=== PATIENT | male | born 1940 | race Caucasian/White ===

== ENCOUNTER 2023-03-08 14:57 | Inpatient (IN) | payer OTHER ==
[~2023-03-08] VITALS: Ht 172.7 cm; Wt 77.1 kg
[2023-03-08] MEDS ORDERED: NICARDIPINE IN NACL, ISO-OSM 200 ML IV ONE (17:30)
[2023-03-08 17:46] LABS: HEMATOCRIT 29 % (39-51); HEMOGLOBIN 9.7 g/dL (13.5-17.5); MEAN CORPUSCULAR HEMOGLOBIN 29 PG (26.0-33.0); MEAN CORPUSCULAR HGB CONC 34 g/dl (31.0-36.0); MEAN CORPUSCULAR VOLUME 85 fL (80-96); PLATELET COUNT (AUTO) 242 K/uL (150-450); RED CELL DISTRIBUTION WIDTH 15.7 % (11.5-15.0); WHITE BLOOD COUNT (AUTO) 6.2 K/uL (4.3-11.0)
[2023-03-08 17:47] LABS: BASOPHILS % (AUTO) 0.6 % (0.0-2.0); EOSINOPHILS # (AUTO) 0.1 K/uL (0.0-0.7); EOSINOPHILS % (AUTO) 1.6 % (0.0-6.0); LYMPHOCYTES # (AUTO) 0.6 K/uL (0.8-4.8); LYMPHOCYTES % (AUTO) 9.3 % (20.0-44.0); MONOCYTES # (AUTO) 0.6 K/uL (0.1-1.30); NEUTROPHILS # (AUTO) 4.9 K/uL (1.8-8.9); NEUTROPHILS % (AUTO) 79.5 % (43.0-81.0)
[2023-03-08 17:53] LABS: INR 1.04 (0.91-1.10); PARTIAL THROMBOPLASTIN TIME 27.3 SEC (24.3-34.3); PROTHROMBIN TIME 10.9 SECS (9.2-11.1)
[2023-03-08 18:06] LABS: CALCIUM, SERUM 10.5 mg/dL (8.5-10.1); CARBON DIOXIDE 27 mmol/L (21-32); CHLORIDE 111 mmol/L (98-107); CREATININE 1.6 mg/dL (0.6-1.3); GLUCOSE 125 mg/dL (74-106); POTASSIUM 4.6 mmol/L (3.5-5.1); SODIUM SERUM 146 mmol/L (136-145); UREA NITROGEN, BLOOD 54 mg/dL (7-18)
[2023-03-08] MEDS ORDERED: QUET100T GT (19:35)
[2023-03-08] MEDS ORDERED: AMLO10TA4 GT (19:35)
[2023-03-08] MEDS ORDERED: LEVO50TA8 GT (19:35)
[2023-03-08] MEDS ORDERED: MAGN400O6 GT (19:35)
[2023-03-08] MEDS ORDERED: NA P133E RC (19:35)
[2023-03-08] MEDS ORDERED: OXYC5TAB3 GT (19:35)
[2023-03-08] MEDS ORDERED: ACET-868 GT (19:35)
[2023-03-08] MEDS ORDERED: ATOR20TA GT (19:35)
[2023-03-08] MEDS ORDERED: NUTR250L50 GT (19:35)
[2023-03-08] MEDS ORDERED: TAMS-12 GT (19:35)
[2023-03-08] MEDS ORDERED: NEOM1OIN15 TP (19:35)
[2023-03-08] MEDS ORDERED: DULO30CA2 GT (19:35)
[2023-03-08] MEDS ORDERED: SENN-261 GT (19:35)
[2023-03-08] MEDS ORDERED: LACT10SO3 GT (19:35)
[2023-03-08] MEDS ORDERED: MULT-213 GT (19:35)
[2023-03-08] MEDS ORDERED: FINA5TAB11 GT (19:35)
[2023-03-08] MEDS ORDERED: ENOX40DI SQ (19:35)
[2023-03-08] MEDS ORDERED: HYDR100T27 GT (19:35)
[2023-03-08] MEDS ORDERED: POLY17PO4 GT (19:35)
[2023-03-08] MEDS ORDERED: MELA3TAB47 GT (19:35)
[2023-03-08] MEDS ORDERED: AMOX100T GT (19:35)
[2023-03-08] MEDS ORDERED: MINO2.5T GT (19:35)
[2023-03-08] MEDS ORDERED: BISA10SU11 RC (19:35)
[2023-03-08] MEDS ORDERED: Z GUARD REMEDY 4 OZ OINT TP PRN (21:00)
[2023-03-08] MEDS ORDERED: ZOLPIDEM TARTRATE 5 MG TABLET PO PRN (21:00)
[2023-03-08] MEDS ORDERED: HYDROCODONE/APAP 5/325MG TABLET PO PRN (21:00)
[2023-03-08] MEDS ORDERED: ONDANSETRON HCL/PF 4 MG/2 ML VIAL IVP PRN (21:00)
[2023-03-08] MEDS ORDERED: ACETAMINOPHEN 325 MG TABLET PO PRN (21:00)
[2023-03-08] MEDS ORDERED: MAG HYDROX/AL HYDROX/SIMETH 30 ML UDC PO PRN (21:00)
[2023-03-08] MEDS ORDERED: MAGNESIUM HYDROXIDE 30 ML UDC PO PRN (21:00)
[2023-03-08 21:20] VITALS: BP 130/93; TEMP 97.4; O2SAT 96
[2023-03-08] MEDS: IV 1/2NS 1000 ML 1,000 ML IV PRN (21:48)
[2023-03-08 22:00] VITALS: BP 127/54; O2SAT 92
[2023-03-08 23:00] VITALS: BP 139/70; O2SAT 94
[2023-03-09] VITALS (24 sets, daily range): BP systolic 115–157; BP diastolic 38–75; TEMP 97.7–99; O2SAT 26–98
[2023-03-09 05:19] LABS: BASOPHILS % (AUTO) 0.5 % (0.0-2.0); EOSINOPHILS % (AUTO) 0.5 % (0.0-6.0); HEMATOCRIT 27 % (39-51); HEMOGLOBIN 9.2 g/dL (13.5-17.5); LYMPHOCYTES # (AUTO) 0.7 K/uL (0.8-4.8); LYMPHOCYTES % (AUTO) 11.5 % (20.0-44.0); MEAN CORPUSCULAR HEMOGLOBIN 29 PG (26.0-33.0); MEAN CORPUSCULAR HGB CONC 34 g/dl (31.0-36.0); MEAN CORPUSCULAR VOLUME 86 fL (80-96); MONOCYTES # (AUTO) 0.8 K/uL (0.1-1.30); MONOCYTES % (AUTO) 12.8 % (2.0-12.0); NEUTROPHILS # (AUTO) 4.4 K/uL (1.8-8.9); NEUTROPHILS % (AUTO) 74.7 % (43.0-81.0); PLATELET COUNT (AUTO) 232 K/uL (150-450); RED BLOOD CELL COUNT(AUTO) 3.15 MIL/uL (4.5-6.0); RED CELL DISTRIBUTION WIDTH 15.3 % (11.5-15.0); WHITE BLOOD COUNT (AUTO) 5.9 K/uL (4.3-11.0)
[2023-03-09 05:37] LABS: CALCIUM, SERUM 10.3 mg/dL (8.5-10.1); CREATININE 1.3 mg/dL (0.6-1.3); POTASSIUM 4.1 mmol/L (3.5-5.1)
[2023-03-09 05:38] LABS: MAGNESIUM 2.2 mg/dL (1.8-2.4); PHOSPHORUS 3.7 mg/dL (2.5-4.9)
[2023-03-09 05:55] LABS: THYROID STIMULATING HORMONE 1.796 uIU/mL (0.358-3.74)
[2023-03-09] MEDS ORDERED: MAGNESIUM HYDROXIDE 30 ML UDC GT PRN (06:00)
[2023-03-09] MEDS ORDERED: BISACODYL SUPP (10 MG) 10 MG/SUPP.RECT SUPP.RECT RC PRN (06:00)
[2023-03-09] MEDS ORDERED: MAG HYDROX/AL HYDROX/SIMETH 30 ML UDC GT PRN (06:51)
[2023-03-09] MEDS ORDERED: ZOLPIDEM TARTRATE 5 MG TABLET GT PRN (06:51)
[2023-03-09] MEDS ORDERED: ACETAMINOPHEN 650 MG/20.3 ML UDC GT PRN (07:00)
[2023-03-09] MEDS: JEVITY 1.2 CAL 1,000 ML BOTTLE GT PRN ×2 (07:00→09:13)
[2023-03-09] MEDS ORDERED: LACTULOSE 10 G/15 ML UDC (PYXIS) GT PRN (07:00)
[2023-03-09] MEDS: LEVOTHYROXINE SODIUM 50 MCG TABLET GT SCH (08:27)
[2023-03-09] MEDS ORDERED: JEVITY 1.2 CAL 1,000 ML BOTTLE GT PRN (08:30)
[2023-03-09] MEDS: DULOXETINE HCL 30 MG CAPSULE.DR GT SCH (08:53)
[2023-03-09] MEDS: POLYETHYLENE GLYCOL 3350 17 GM POWD.PACK GT SCH (08:53)
[2023-03-09] MEDS: MINOXIDIL (2.5MG) 2.5 MG TABLET GT SCH ×2 (08:53→21:16)
[2023-03-09] MEDS: QUETIAPINE FUMARATE 100 MG TABLET GT SCH ×2 (08:54→21:17)
[2023-03-09] MEDS: PANTOPRAZOLE 40 MG/PACK PACK GT SCH (08:54)
[2023-03-09] MEDS: AMLODIPINE BESYLATE 10 MG TABLET GT SCH (08:54)
[2023-03-09] MEDS: SENNOSIDES 8.6 MG TABLET GT SCH ×2 (08:54→21:16)
[2023-03-09] MEDS: FINASTERIDE (5 MG) 5 MG TABLET GT SCH (08:54)
[2023-03-09] MEDS: MULTIVIT W/MINERALS 1 TAB TABLET GT SCH (08:54)
[2023-03-09] MEDS: IV 1/2NS 1000 ML 1,000 ML IV PRN ×2 (11:26→23:08)
[2023-03-09] MEDS ORDERED: oxyCODONE IR immediate release 5 MG GT PRN (11:30)
[2023-03-09] MEDS: hydrALAZINE HCL 50 MG TABLET GT SCH ×3 (16:17→21:17)
[2023-03-09] MEDS ORDERED: HYDROCODONE/APAP 10/325MG TABLET GT PRN (17:00)
[2023-03-09 17:49] LABS: CALCIUM, SERUM 10.3 mg/dL (8.5-10.1); CARBON DIOXIDE 26 mmol/L (21-32); CHLORIDE 115 mmol/L (98-107); CREATININE 1.3 mg/dL (0.6-1.3); GLUCOSE 112 mg/dL (74-106); MAGNESIUM 2.2 mg/dL (1.8-2.4); PHOSPHORUS 3.7 mg/dL (2.5-4.9); POTASSIUM 4.4 mmol/L (3.5-5.1); SODIUM SERUM 151 mmol/L (136-145); UREA NITROGEN, BLOOD 46 mg/dL (7-18)
[2023-03-09 18:06] LABS: URIC ACID 7.2 mg/dL (2.6-7.2)
[2023-03-09] MEDS: TAMSULOSIN 0.4 MG CAP.SR.24H GT SCH (21:16)
[2023-03-09] MEDS: ATORVASTATIN 10 MG TABLET GT SCH (21:16)
[2023-03-09] MEDS: HYDROCODONE/APAP 5/325MG TABLET GT PRN (21:17)
[2023-03-09] MEDS ORDERED: AMOXAPINE GT SCH (22:00)
[2023-03-10] VITALS (19 sets, daily range): BP systolic 116–152; BP diastolic 35–58; TEMP 97.6–99.2; O2SAT 92–100
[2023-03-10 05:49] LABS: BASOPHILS % (AUTO) 0.8 % (0.0-2.0); EOSINOPHILS # (AUTO) 0.1 K/uL (0.0-0.7); HEMATOCRIT 27 % (39-51); HEMOGLOBIN 9.2 g/dL (13.5-17.5); LYMPHOCYTES # (AUTO) 0.8 K/uL (0.8-4.8); LYMPHOCYTES % (AUTO) 13.9 % (20.0-44.0); MEAN CORPUSCULAR HEMOGLOBIN 29 PG (26.0-33.0); MEAN CORPUSCULAR HGB CONC 34 g/dl (31.0-36.0); MEAN CORPUSCULAR VOLUME 85 fL (80-96); MONOCYTES # (AUTO) 0.9 K/uL (0.1-1.30); MONOCYTES % (AUTO) 14.1 % (2.0-12.0); NEUTROPHILS # (AUTO) 4.2 K/uL (1.8-8.9); NEUTROPHILS % (AUTO) 69.2 % (43.0-81.0); PLATELET COUNT (AUTO) 230 K/uL (150-450); RED BLOOD CELL COUNT(AUTO) 3.16 MIL/uL (4.5-6.0); RED CELL DISTRIBUTION WIDTH 15.4 % (11.5-15.0); WHITE BLOOD COUNT (AUTO) 6.1 K/uL (4.3-11.0)
[2023-03-10 06:43] LABS: BILIRUBIN,TOTAL 0.4 mg/dL (0.2-1.0); CALCIUM, SERUM 9.7 mg/dL (8.5-10.1); CREATININE 1.3 mg/dL (0.6-1.3); MAGNESIUM 2.1 mg/dL (1.8-2.4); PHOSPHORUS 3.3 mg/dL (2.5-4.9); TOTAL PROTEIN, SERUM 6.2 g/dL (6.4-8.2)
[2023-03-10 07:38] LABS: APPEARANCE,URINE CLEAR (CLEAR); BILIRUBIN,URINE NEGATIVE (NEGATIVE); BLOOD, URINE TRACE-INTA Ery/uL (NEGATIVE); COLOR,URINE YELLOW (YELLOW); KETONES,URINE NEGATIVE (NEGATIVE); LEUKOCYTE ESTERASE ,URINE 2+ (NEGATIVE); NITRITE, URINE POSITIVE (NEGATIVE); PROTEIN,URINE 3+ mg/dl (NEGATIVE); UGLUCOSE NEGATIVE (NEGATIVE); UROBILINOGEN,URINE 0.2 EU/dL (0.2)
[2023-03-10 07:39] LABS: PH,URINE >9.0 (5.0-8.0)
[2023-03-10 07:43] LABS: ADD URINE CULTURE YES; BACTERIA,URINE Moderate /HPF (None Seen); EOSINOPHIL,URINE None Seen; RBC,URINE 0-2 /HPF (0-2); SQUAMOUS EPITHELIAL CELL,UR Rare /HPF (None Seen)
[2023-03-10] MEDS: POLYETHYLENE GLYCOL 3350 17 GM POWD.PACK GT SCH (09:10)
[2023-03-10] MEDS: DULOXETINE HCL 30 MG CAPSULE.DR GT SCH (09:11)
[2023-03-10] MEDS: PANTOPRAZOLE 40 MG/PACK PACK GT SCH (09:11)
[2023-03-10] MEDS: MINOXIDIL (2.5MG) 2.5 MG TABLET GT SCH ×2 (09:11→21:13)
[2023-03-10] MEDS: MULTIVIT W/MINERALS 1 TAB TABLET GT SCH (09:11)
[2023-03-10] MEDS: QUETIAPINE FUMARATE 100 MG TABLET GT SCH ×2 (09:11→21:14)
[2023-03-10] MEDS: FINASTERIDE (5 MG) 5 MG TABLET GT SCH (09:11)
[2023-03-10] MEDS: SENNOSIDES 8.6 MG TABLET GT SCH ×2 (09:12→21:14)
[2023-03-10] MEDS: AMLODIPINE BESYLATE 10 MG TABLET GT SCH (09:12)
[2023-03-10] MEDS: hydrALAZINE HCL 50 MG TABLET GT SCH ×4 (09:12→21:13)
[2023-03-10] MEDS: LEVOTHYROXINE SODIUM 50 MCG TABLET GT SCH (09:12)
[2023-03-10] MEDS: JEVITY 1.2 CAL 1,000 ML BOTTLE GT PRN (09:14)
[2023-03-10 10:18] LABS: CREATININE, URINE 54.7 MG/DL (30.0-125.0); URINE TOTAL PROTEIN 291.5 mg/dL (0-11.9)
[2023-03-10] MEDS: IV 1/2NS 1000 ML 1,000 ML IV PRN (14:45)
[2023-03-10] MEDS: ATORVASTATIN 10 MG TABLET GT SCH (21:14)
[2023-03-10] MEDS: TAMSULOSIN 0.4 MG CAP.SR.24H GT SCH (21:15)
[2023-03-11 07:00] VITALS: BP 115/66; TEMP 98.2; O2SAT 95
[2023-03-11] MEDS: LEVOTHYROXINE SODIUM 50 MCG TABLET GT SCH (07:54)
[2023-03-11] MEDS: hydrALAZINE HCL 50 MG TABLET GT SCH ×4 (10:04→22:36)
[2023-03-11] MEDS: DULOXETINE HCL 30 MG CAPSULE.DR GT SCH (10:13)
[2023-03-11] MEDS: MINOXIDIL (2.5MG) 2.5 MG TABLET GT SCH ×2 (10:14→22:35)
[2023-03-11] MEDS: POLYETHYLENE GLYCOL 3350 17 GM POWD.PACK GT SCH (10:14)
[2023-03-11] MEDS: FINASTERIDE (5 MG) 5 MG TABLET GT SCH (10:15)
[2023-03-11] MEDS: PANTOPRAZOLE 40 MG/PACK PACK GT SCH (10:15)
[2023-03-11] MEDS: SENNOSIDES 8.6 MG TABLET GT SCH ×2 (10:15→22:36)
[2023-03-11] MEDS: AMLODIPINE BESYLATE 10 MG TABLET GT SCH (10:15)
[2023-03-11] MEDS: MULTIVIT W/MINERALS 1 TAB TABLET GT SCH (10:16)
[2023-03-11] MEDS: QUETIAPINE FUMARATE 100 MG TABLET GT SCH ×2 (10:16→22:36)
[2023-03-11] MEDS: HYDROCODONE/APAP 5/325MG TABLET GT PRN (10:17)
[2023-03-11] MEDS: CEFTRIAXONE 1 G in IV D5W 50 ML IV SCH (15:28)
[2023-03-11 16:00] VITALS: BP 112/87; TEMP 98.7; O2SAT 96
[2023-03-11 18:00] VITALS: BP 134/43; TEMP 98.3
[2023-03-11 19:00] VITALS: BP 134/75; TEMP 99; O2SAT 94
[2023-03-11] MEDS: TAMSULOSIN 0.4 MG CAP.SR.24H GT SCH (22:34)
[2023-03-11] MEDS: ATORVASTATIN 10 MG TABLET GT SCH (22:35)
[2023-03-11] MEDS: JEVITY 1.2 CAL 1,000 ML BOTTLE GT PRN (22:43)
[2023-03-12 04:00] VITALS: BP 130/48; TEMP 98; O2SAT 90
[2023-03-12] MEDS: LEVOTHYROXINE SODIUM 50 MCG TABLET GT SCH (07:51)
[2023-03-12 08:00] VITALS: BP 142/62; TEMP 98.5; O2SAT 96
[2023-03-12] MEDS: AMLODIPINE BESYLATE 10 MG TABLET GT SCH (08:51)
[2023-03-12] MEDS: PANTOPRAZOLE 40 MG/PACK PACK GT SCH (08:51)
[2023-03-12] MEDS: SENNOSIDES 8.6 MG TABLET GT SCH ×2 (08:51→21:26)
[2023-03-12] MEDS: MULTIVIT W/MINERALS 1 TAB TABLET GT SCH (08:51)
[2023-03-12] MEDS: QUETIAPINE FUMARATE 100 MG TABLET GT SCH ×2 (08:51→21:25)
[2023-03-12] MEDS: hydrALAZINE HCL 50 MG TABLET GT SCH ×4 (08:52→21:26)
[2023-03-12] MEDS: POLYETHYLENE GLYCOL 3350 17 GM POWD.PACK GT SCH (08:53)
[2023-03-12] MEDS: MINOXIDIL (2.5MG) 2.5 MG TABLET GT SCH ×2 (08:53→21:25)
[2023-03-12] MEDS: DULOXETINE HCL 30 MG CAPSULE.DR GT SCH (08:53)
[2023-03-12] MEDS: FINASTERIDE (5 MG) 5 MG TABLET GT SCH (08:53)
[2023-03-12 12:00] VITALS: BP 130/48; TEMP 98; O2SAT 98
[2023-03-12 12:29] LABS: BASOPHILS % (AUTO) 0.3 % (0.0-2.0); EOSINOPHILS # (AUTO) 0.1 K/uL (0.0-0.7); EOSINOPHILS % (AUTO) 0.8 % (0.0-6.0); HEMATOCRIT 26 % (39-51); HEMOGLOBIN 8.7 g/dL (13.5-17.5); LYMPHOCYTES # (AUTO) 0.7 K/uL (0.8-4.8); LYMPHOCYTES % (AUTO) 10.6 % (20.0-44.0); MEAN CORPUSCULAR HEMOGLOBIN 28 PG (26.0-33.0); MEAN CORPUSCULAR HGB CONC 33 g/dl (31.0-36.0); MEAN CORPUSCULAR VOLUME 86 fL (80-96); MONOCYTES # (AUTO) 0.8 K/uL (0.1-1.30); MONOCYTES % (AUTO) 11.5 % (2.0-12.0); NEUTROPHILS # (AUTO) 5.1 K/uL (1.8-8.9); NEUTROPHILS % (AUTO) 76.8 % (43.0-81.0); PLATELET COUNT (AUTO) 199 K/uL (150-450); RED BLOOD CELL COUNT(AUTO) 3.09 MIL/uL (4.5-6.0); RED CELL DISTRIBUTION WIDTH 15.8 % (11.5-15.0); WHITE BLOOD COUNT (AUTO) 6.7 K/uL (4.3-11.0)
[2023-03-12] MEDS: CEFTRIAXONE 1 G in IV D5W 50 ML IV SCH (13:04)
[2023-03-12 13:31] LABS: ALANINE AMINOTRANSFERASE 33 U/L (12-78); ALBUMIN 2.9 g/dL (3.4-5.0); ALKALINE PHOSPHATASE 63 U/L (46-116); ASPARTATE AMINOTRANSFERASE 18 U/L (15-37); BILIRUBIN,TOTAL 0.3 mg/dL (0.2-1.0); CARBON DIOXIDE 24 mmol/L (21-32); CHLORIDE 121 mmol/L (98-107); CREATININE 1.4 mg/dL (0.6-1.3); GLUCOSE 164 mg/dL (74-106); MAGNESIUM 2.4 mg/dL (1.8-2.4); PHOSPHORUS 3.6 mg/dL (2.5-4.9); POTASSIUM 4.1 mmol/L (3.5-5.1); SODIUM SERUM 153 mmol/L (136-145); TOTAL PROTEIN, SERUM 6.4 g/dL (6.4-8.2); UREA NITROGEN, BLOOD 50 mg/dL (7-18)
[2023-03-12] MEDS: JEVITY 1.2 CAL 1,000 ML BOTTLE GT PRN (14:44)
[2023-03-12 19:20] VITALS: BP 136/76; TEMP 98.9; O2SAT 96
[2023-03-12] MEDS: ATORVASTATIN 10 MG TABLET GT SCH (21:25)
[2023-03-12] MEDS: TAMSULOSIN 0.4 MG CAP.SR.24H GT SCH (21:26)
[2023-03-13 04:00] VITALS: BP 114/67; TEMP 95.8; O2SAT 94
[2023-03-13 06:22] LABS: BASOPHILS % (AUTO) 0.6 % (0.0-2.0); EOSINOPHILS # (AUTO) 0.2 K/uL (0.0-0.7); EOSINOPHILS % (AUTO) 2.4 % (0.0-6.0); HEMATOCRIT 26 % (39-51); HEMOGLOBIN 8.8 g/dL (13.5-17.5); LYMPHOCYTES # (AUTO) 0.8 K/uL (0.8-4.8); LYMPHOCYTES % (AUTO) 13.3 % (20.0-44.0); MEAN CORPUSCULAR HEMOGLOBIN 29 PG (26.0-33.0); MEAN CORPUSCULAR HGB CONC 34 g/dl (31.0-36.0); MEAN CORPUSCULAR VOLUME 85 fL (80-96); MONOCYTES # (AUTO) 0.8 K/uL (0.1-1.30); MONOCYTES % (AUTO) 13.4 % (2.0-12.0); NEUTROPHILS # (AUTO) 4.3 K/uL (1.8-8.9); NEUTROPHILS % (AUTO) 70.3 % (43.0-81.0); PLATELET COUNT (AUTO) 221 K/uL (150-450); RED BLOOD CELL COUNT(AUTO) 3.07 MIL/uL (4.5-6.0); RED CELL DISTRIBUTION WIDTH 15.4 % (11.5-15.0); WHITE BLOOD COUNT (AUTO) 6.2 K/uL (4.3-11.0)
[2023-03-13 06:44] LABS: CALCIUM, SERUM 10.1 mg/dL (8.5-10.1); CARBON DIOXIDE 24 mmol/L (21-32); CHLORIDE 123 mmol/L (98-107); CREATININE 1.5 mg/dL (0.6-1.3); GLUCOSE 147 mg/dL (74-106); POTASSIUM 4.6 mmol/L (3.5-5.1); UREA NITROGEN, BLOOD 55 mg/dL (7-18)
[2023-03-13 07:01] LABS: SODIUM SERUM 159 mmol/L (136-145)
[2023-03-13 08:00] VITALS: BP 133/61; TEMP 98.3; O2SAT 95
[2023-03-13] MEDS: POLYETHYLENE GLYCOL 3350 17 GM POWD.PACK GT SCH (08:04)
[2023-03-13] MEDS: PANTOPRAZOLE 40 MG/PACK PACK GT SCH (08:05)
[2023-03-13] MEDS: FINASTERIDE (5 MG) 5 MG TABLET GT SCH (08:05)
[2023-03-13] MEDS: QUETIAPINE FUMARATE 100 MG TABLET GT SCH ×2 (08:05→21:15)
[2023-03-13] MEDS: MULTIVIT W/MINERALS 1 TAB TABLET GT SCH (08:06)
[2023-03-13] MEDS: LEVOTHYROXINE SODIUM 50 MCG TABLET GT SCH (08:06)
[2023-03-13] MEDS: DULOXETINE HCL 30 MG CAPSULE.DR GT SCH (08:06)
[2023-03-13] MEDS: SENNOSIDES 8.6 MG TABLET GT SCH ×2 (08:06→21:13)
[2023-03-13] MEDS: MINOXIDIL (2.5MG) 2.5 MG TABLET GT SCH ×2 (08:16→21:15)
[2023-03-13] MEDS: AMLODIPINE BESYLATE 10 MG TABLET GT SCH (08:17)
[2023-03-13] MEDS: hydrALAZINE HCL 50 MG TABLET GT SCH ×4 (08:17→21:17)
[2023-03-13] MEDS: IV D5W 1,000 ML IV PRN (10:10)
[2023-03-13] MEDS: CEFTRIAXONE 1 G in IV D5W 50 ML IV SCH (13:12)
[2023-03-13 20:00] VITALS: BP 145/51; TEMP 98; O2SAT 95
[2023-03-13] MEDS: TAMSULOSIN 0.4 MG CAP.SR.24H GT SCH (21:15)
[2023-03-13] MEDS: ATORVASTATIN 10 MG TABLET GT SCH (21:15)
[2023-03-13] MEDS: JEVITY 1.2 CAL 1,000 ML BOTTLE GT PRN (23:53)
[2023-03-14] MEDS: IV D5W 1,000 ML IV PRN (02:45)
[2023-03-14] MEDS: HYDROCODONE/APAP 5/325MG TABLET GT PRN ×2 (05:37→16:50)
[2023-03-14 05:55] LABS: BASOPHILS % (AUTO) 0.8 % (0.0-2.0); EOSINOPHILS # (AUTO) 0.2 K/uL (0.0-0.7); EOSINOPHILS % (AUTO) 3.5 % (0.0-6.0); HEMATOCRIT 28 % (39-51); HEMOGLOBIN 9.2 g/dL (13.5-17.5); LYMPHOCYTES # (AUTO) 0.7 K/uL (0.8-4.8); LYMPHOCYTES % (AUTO) 11.6 % (20.0-44.0); MEAN CORPUSCULAR HEMOGLOBIN 29 PG (26.0-33.0); MEAN CORPUSCULAR HGB CONC 33 g/dl (31.0-36.0); MEAN CORPUSCULAR VOLUME 86 fL (80-96); MONOCYTES # (AUTO) 0.7 K/uL (0.1-1.30); MONOCYTES % (AUTO) 12.3 % (2.0-12.0); NEUTROPHILS # (AUTO) 4.3 K/uL (1.8-8.9); NEUTROPHILS % (AUTO) 71.8 % (43.0-81.0); PLATELET COUNT (AUTO) 217 K/uL (150-450); RED BLOOD CELL COUNT(AUTO) 3.21 MIL/uL (4.5-6.0); RED CELL DISTRIBUTION WIDTH 16.2 % (11.5-15.0)
[2023-03-14 06:04] LABS: CALCIUM, SERUM 9.8 mg/dL (8.5-10.1); CREATININE 1.3 mg/dL (0.6-1.3); POTASSIUM 4.1 mmol/L (3.5-5.1)
[2023-03-14] MEDS: PANTOPRAZOLE 40 MG/PACK PACK GT SCH (08:38)
[2023-03-14] MEDS: QUETIAPINE FUMARATE 100 MG TABLET GT SCH ×2 (08:38→21:10)
[2023-03-14] MEDS: POLYETHYLENE GLYCOL 3350 17 GM POWD.PACK GT SCH (08:38)
[2023-03-14] MEDS: MULTIVIT W/MINERALS 1 TAB TABLET GT SCH (08:38)
[2023-03-14] MEDS: AMLODIPINE BESYLATE 10 MG TABLET GT SCH (08:42)
[2023-03-14] MEDS: LEVOTHYROXINE SODIUM 50 MCG TABLET GT SCH (08:42)
[2023-03-14] MEDS: hydrALAZINE HCL 50 MG TABLET GT SCH ×4 (08:43→21:09)
[2023-03-14] MEDS: MINOXIDIL (2.5MG) 2.5 MG TABLET GT SCH ×2 (08:43→21:09)
[2023-03-14] MEDS: SENNOSIDES 8.6 MG TABLET GT SCH ×2 (08:44→21:08)
[2023-03-14] MEDS: FINASTERIDE (5 MG) 5 MG TABLET GT SCH (08:44)
[2023-03-14] MEDS: DULOXETINE HCL 30 MG CAPSULE.DR GT SCH (09:00)
[2023-03-14 09:12] VITALS: BP 119/54; TEMP 98.8; O2SAT 97
[2023-03-14] MEDS: CEFTRIAXONE 1 G in IV D5W 50 ML IV SCH (14:04)
[2023-03-14 15:57] VITALS: BP 121/50; TEMP 97.7; O2SAT 98
[2023-03-14] MEDS: JEVITY 1.2 CAL 1,000 ML BOTTLE GT PRN (16:32)
[2023-03-14 20:00] VITALS: BP 151/70; TEMP 98; O2SAT 96
[2023-03-14] MEDS: ATORVASTATIN 10 MG TABLET GT SCH (21:36)
[2023-03-14] MEDS: TAMSULOSIN 0.4 MG CAP.SR.24H GT SCH (21:36)
[2023-03-15 05:18] VITALS: O2SAT 96
[2023-03-15 07:17] LABS: BASOPHILS % (AUTO) 0.5 % (0.0-2.0); EOSINOPHILS # (AUTO) 0.2 K/uL (0.0-0.7); EOSINOPHILS % (AUTO) 3.4 % (0.0-6.0); HEMATOCRIT 27 % (39-51); HEMOGLOBIN 8.7 g/dL (13.5-17.5); LYMPHOCYTES # (AUTO) 0.7 K/uL (0.8-4.8); LYMPHOCYTES % (AUTO) 11.8 % (20.0-44.0); MEAN CORPUSCULAR HEMOGLOBIN 28 PG (26.0-33.0); MEAN CORPUSCULAR HGB CONC 33 g/dl (31.0-36.0); MEAN CORPUSCULAR VOLUME 86 fL (80-96); MONOCYTES # (AUTO) 0.8 K/uL (0.1-1.30); MONOCYTES % (AUTO) 12.4 % (2.0-12.0); NEUTROPHILS # (AUTO) 4.5 K/uL (1.8-8.9); NEUTROPHILS % (AUTO) 71.9 % (43.0-81.0); PLATELET COUNT (AUTO) 215 K/uL (150-450); RED BLOOD CELL COUNT(AUTO) 3.11 MIL/uL (4.5-6.0); RED CELL DISTRIBUTION WIDTH 16.2 % (11.5-15.0); WHITE BLOOD COUNT (AUTO) 6.2 K/uL (4.3-11.0)
[2023-03-15 07:42] LABS: CALCIUM, SERUM 10.1 mg/dL (8.5-10.1); CARBON DIOXIDE 25 mmol/L (21-32); CHLORIDE 122 mmol/L (98-107); CREATININE 1.4 mg/dL (0.6-1.3); GLUCOSE 130 mg/dL (74-106); POTASSIUM 4.4 mmol/L (3.5-5.1); UREA NITROGEN, BLOOD 46 mg/dL (7-18)
[2023-03-15 08:00] VITALS: BP 141/54; TEMP 100.1; O2SAT 96
[2023-03-15] MEDS: LEVOTHYROXINE SODIUM 50 MCG TABLET GT SCH (08:07)
[2023-03-15 08:16] LABS: SODIUM SERUM 156 mmol/L (136-145)
[2023-03-15] MEDS: POLYETHYLENE GLYCOL 3350 17 GM POWD.PACK GT SCH (08:33)
[2023-03-15] MEDS: hydrALAZINE HCL 50 MG TABLET GT SCH ×4 (08:34→21:00)
[2023-03-15] MEDS: AMLODIPINE BESYLATE 10 MG TABLET GT SCH (08:35)
[2023-03-15] MEDS: SENNOSIDES 8.6 MG TABLET GT SCH ×2 (08:35→21:23)
[2023-03-15] MEDS: QUETIAPINE FUMARATE 100 MG TABLET GT SCH ×2 (08:35→21:24)
[2023-03-15] MEDS: PANTOPRAZOLE 40 MG/PACK PACK GT SCH (08:35)
[2023-03-15] MEDS: MINOXIDIL (2.5MG) 2.5 MG TABLET GT SCH ×2 (08:35→21:00)
[2023-03-15] MEDS: DULOXETINE HCL 30 MG CAPSULE.DR GT SCH (08:35)
[2023-03-15] MEDS: FINASTERIDE (5 MG) 5 MG TABLET GT SCH (08:36)
[2023-03-15] MEDS: MULTIVIT W/MINERALS 1 TAB TABLET GT SCH (08:36)
[2023-03-15] MEDS: IV D5W 1,000 ML IV PRN (11:05)
[2023-03-15] MEDS: CEFTRIAXONE 1 G in IV D5W 50 ML IV SCH (13:18)
[2023-03-15 18:00] VITALS: BP 115/60; TEMP 97.9; O2SAT 98
[2023-03-15 20:00] VITALS: BP 130/46; TEMP 98.6; O2SAT 96
[2023-03-15] MEDS: ATORVASTATIN 10 MG TABLET GT SCH (21:24)
[2023-03-15] MEDS: TAMSULOSIN 0.4 MG CAP.SR.24H GT SCH (21:24)
[2023-03-16] MEDS: IV D5W 1,000 ML IV PRN ×3 (01:56→20:41)
[2023-03-16 05:46] LABS: BASOPHILS % (AUTO) 0.6 % (0.0-2.0); EOSINOPHILS # (AUTO) 0.2 K/uL (0.0-0.7); EOSINOPHILS % (AUTO) 3.9 % (0.0-6.0); HEMATOCRIT 25 % (39-51); HEMOGLOBIN 8.3 g/dL (13.5-17.5); LYMPHOCYTES # (AUTO) 0.7 K/uL (0.8-4.8); LYMPHOCYTES % (AUTO) 12.2 % (20.0-44.0); MEAN CORPUSCULAR HEMOGLOBIN 28 PG (26.0-33.0); MEAN CORPUSCULAR HGB CONC 33 g/dl (31.0-36.0); MEAN CORPUSCULAR VOLUME 86 fL (80-96); MONOCYTES # (AUTO) 0.7 K/uL (0.1-1.30); MONOCYTES % (AUTO) 11.9 % (2.0-12.0); NEUTROPHILS # (AUTO) 4.1 K/uL (1.8-8.9); NEUTROPHILS % (AUTO) 71.4 % (43.0-81.0); PLATELET COUNT (AUTO) 196 K/uL (150-450); RED BLOOD CELL COUNT(AUTO) 2.93 MIL/uL (4.5-6.0); RED CELL DISTRIBUTION WIDTH 15.6 % (11.5-15.0); WHITE BLOOD COUNT (AUTO) 5.8 K/uL (4.3-11.0)
[2023-03-16 05:51] LABS: CALCIUM, SERUM 9.5 mg/dL (8.5-10.1); CREATININE 1.3 mg/dL (0.6-1.3); POTASSIUM 4.2 mmol/L (3.5-5.1)
[2023-03-16] MEDS: LEVOTHYROXINE SODIUM 50 MCG TABLET GT SCH (07:51)
[2023-03-16 08:00] VITALS: BP 126/47; TEMP 98.2; O2SAT 96
[2023-03-16] MEDS: hydrALAZINE HCL 50 MG TABLET GT SCH ×4 (09:00→21:20)
[2023-03-16] MEDS: MULTIVIT W/MINERALS 1 TAB TABLET GT SCH (09:09)
[2023-03-16] MEDS: POLYETHYLENE GLYCOL 3350 17 GM POWD.PACK GT SCH (09:09)
[2023-03-16] MEDS: QUETIAPINE FUMARATE 100 MG TABLET GT SCH ×2 (09:09→21:19)
[2023-03-16] MEDS: DULOXETINE HCL 30 MG CAPSULE.DR GT SCH (09:09)
[2023-03-16] MEDS: FINASTERIDE (5 MG) 5 MG TABLET GT SCH (09:11)
[2023-03-16] MEDS: PANTOPRAZOLE 40 MG/PACK PACK GT SCH (09:11)
[2023-03-16] MEDS: SENNOSIDES 8.6 MG TABLET GT SCH ×2 (09:11→21:19)
[2023-03-16] MEDS: JEVITY 1.2 CAL 1,000 ML BOTTLE GT PRN (09:29)
[2023-03-16] MEDS: AMLODIPINE BESYLATE 10 MG TABLET GT SCH (09:32)
[2023-03-16] MEDS: MINOXIDIL (2.5MG) 2.5 MG TABLET GT SCH ×2 (09:32→21:52)
[2023-03-16 12:13] VITALS: BP 135/42; TEMP 98; O2SAT 92
[2023-03-16] MEDS: CEFTRIAXONE 1 G in IV D5W 50 ML IV SCH (13:24)
[2023-03-16] MEDS: GLUCERNA 1.2 1,000 ML BOTTLE NG PRN (14:04)
[2023-03-16 16:14] VITALS: BP 134/43; TEMP 99.3; O2SAT 93
[2023-03-16 20:00] VITALS: BP 135/56; TEMP 97.7; O2SAT 94
[2023-03-16] MEDS: ATORVASTATIN 10 MG TABLET GT SCH (21:19)
[2023-03-16] MEDS: TAMSULOSIN 0.4 MG CAP.SR.24H GT SCH (21:19)
[2023-03-17] MEDS: IV D5W 1,000 ML IV PRN (03:51)
[2023-03-17] MEDS: GLUCERNA 1.2 1,000 ML BOTTLE NG PRN (04:37)
[2023-03-17 05:46] LABS: BASOPHILS % (AUTO) 0.7 % (0.0-2.0); EOSINOPHILS # (AUTO) 0.3 K/uL (0.0-0.7); EOSINOPHILS % (AUTO) 4.7 % (0.0-6.0); HEMATOCRIT 25 % (39-51); HEMOGLOBIN 8.1 g/dL (13.5-17.5); LYMPHOCYTES # (AUTO) 0.8 K/uL (0.8-4.8); LYMPHOCYTES % (AUTO) 13.7 % (20.0-44.0); MEAN CORPUSCULAR HEMOGLOBIN 28 PG (26.0-33.0); MEAN CORPUSCULAR HGB CONC 33 g/dl (31.0-36.0); MEAN CORPUSCULAR VOLUME 86 fL (80-96); MONOCYTES # (AUTO) 0.8 K/uL (0.1-1.30); MONOCYTES % (AUTO) 12.8 % (2.0-12.0); NEUTROPHILS % (AUTO) 68.1 % (43.0-81.0); PLATELET COUNT (AUTO) 187 K/uL (150-450); RED BLOOD CELL COUNT(AUTO) 2.87 MIL/uL (4.5-6.0); RED CELL DISTRIBUTION WIDTH 15.7 % (11.5-15.0); WHITE BLOOD COUNT (AUTO) 5.9 K/uL (4.3-11.0)
[2023-03-17 05:56] LABS: CALCIUM, SERUM 9.3 mg/dL (8.5-10.1); CREATININE 1.3 mg/dL (0.6-1.3); POTASSIUM 4.2 mmol/L (3.5-5.1)
[2023-03-17 07:30] VITALS: BP 131/60; TEMP 98.4; O2SAT 97
[2023-03-17] MEDS: LEVOTHYROXINE SODIUM 50 MCG TABLET GT SCH (08:56)
[2023-03-17] MEDS: PANTOPRAZOLE 40 MG/PACK PACK GT SCH (08:56)
[2023-03-17] MEDS: FINASTERIDE (5 MG) 5 MG TABLET GT SCH (08:56)
[2023-03-17] MEDS: POLYETHYLENE GLYCOL 3350 17 GM POWD.PACK GT SCH ×2 (08:56→09:00)
[2023-03-17] MEDS: SENNOSIDES 8.6 MG TABLET GT SCH (08:56)
[2023-03-17] MEDS: DULOXETINE HCL 30 MG CAPSULE.DR GT SCH (08:57)
[2023-03-17] MEDS: MULTIVIT W/MINERALS 1 TAB TABLET GT SCH (08:57)
[2023-03-17] MEDS: MINOXIDIL (2.5MG) 2.5 MG TABLET GT SCH (08:57)
[2023-03-17] MEDS: QUETIAPINE FUMARATE 100 MG TABLET GT SCH (08:57)
[2023-03-17] MEDS: AMLODIPINE BESYLATE 10 MG TABLET GT SCH (08:58)
[2023-03-17] MEDS: hydrALAZINE HCL 50 MG TABLET GT SCH ×2 (09:02→12:45)
[2023-03-17] MEDS ORDERED: AMOX-430 PO (10:24)
[2023-03-17 12:45] VITALS: BP 129/53
[2023-03-17] MEDS: CEFTRIAXONE 1 G in IV D5W 50 ML IV SCH (13:40)
== END 2023-03-17 16:11 | DRG 85 ==
LOC: ER 15:03 → ICU 20:02 → MED 03-10 17:28
PROVIDERS: ADMIT Student in an Organized Health Care Education/Training Program; ATTEND Nurse Practitioner Acute Care
DX: S06.5X0A Traumatic subdural hemorrhage without loss of consciousness, initial encounter (principal); G93.41 Metabolic encephalopathy; N17.0 Acute kidney failure with tubular necrosis; D68.69 Other thrombophilia; N39.0 Urinary tract infection, site not specified; E87.0 Hyperosmolality and hypernatremia; S01.111A Laceration without foreign body of right eyelid and periocular area, initial encounter; W22.8XXA Striking against or struck by other objects, initial encounter; Y92.129 Unspecified place in nursing home as the place of occurrence of the external cause; R62.7 Adult failure to thrive; D64.9 Anemia, unspecified; E03.9 Hypothyroidism, unspecified; E83.52 Hypercalcemia; E86.1 Hypovolemia; N40.1 Benign prostatic hyperplasia with lower urinary tract symptoms; R13.10 Dysphagia, unspecified; Z93.1 Gastrostomy status; Z20.822 Contact with and (suspected) exposure to COVID-19; Z74.09 Other reduced mobility; Y93.9 Activity, unspecified; Z68.25 Body mass index [BMI] 25.0-25.9, adult; I12.9 Hypertensive chronic kidney disease with stage 1 through stage 4 chronic kidney disease, or unspecified chronic kidney disease; N18.9 Chronic kidney disease, unspecified; F03.90 Unspecified dementia, unspecified severity, without behavioral disturbance, psychotic disturbance, mood disturbance, and anxiety; E88.9 Metabolic disorder, unspecified; R40.2362 Coma scale, best motor response, obeys commands, at arrival to emergency department; R40.2142 Coma scale, eyes open, spontaneous, at arrival to emergency department; R40.2242 Coma scale, best verbal response, confused conversation, at arrival to emergency department
CPT/HCPCS: 36415; 70450-TC; 71045-TC; 80048-TC; 80053-TC; 81001; 82533; 82570-TC; 83735-TC; 83970; 84100-TC; 84300-TC; 84443-TC; 84550-TC; 85025-TC; 85730-TC; 87081-TC; 87086-TC; 94799-TC; A4223; G0378; J0696; J3490; J7030; J7050; J7060; J7070